=== PATIENT | male | born 1940 | race Caucasian/White ===

== ENCOUNTER 2018-06-20 10:53 | Day surgery (SDC) | payer OTHER ==
[2018-06-18 15:24] LABS: Absolute Lymphocytes (CBC) 1.8 K/uL (0.7-4.9); Absolute Monocytes 0.6 K/uL (0.1-1.3); Absolute Neutrophil 4.7 K/uL (1.8-8.0); Basophils % 0.6 % (0-1.3); Eosinophils % 5.1 % (0-4.4); Hematocrit 49.8 % (39.6-49.0); Lymphocytes % 23.9 % (15.3-44.8); MPV 8.9 fL (7.6-11.3); RBC Red Blood Cell Count 5.51 M/uL (4.33-5.43)
[2018-06-18 15:26] LABS: Protime INR 1.08
[2018-06-18 15:52] LABS: Urine Appearance CLOUDY; Urine Bilirubin NEGATIVE (NEG); Urine Blood 3+ (NEG); Urine Color RED; Urine Glucose NEGATIVE (NEG); Urine Protein 2+ (NEG); Urine pH 6.5 (5.0-7.0)
[2018-06-18 16:40] LABS: Urine Microscopic Reflex ORDER UMIC
[2018-06-18 17:20] LABS: Urine Bacteria <20 /HPF (NONE SEEN); Urine Culture Reflex Order REFLEXED; Urine Mucus 2+ /HPF (NONE SEEN); Urine RBC TNTC /HPF (NONE SEEN)
[2018-06-20] MEDS ORDERED: Ringers Lactate 1,000 ML IV ONE ×2 (11:14→16:23)
[2018-06-20] MEDS ORDERED: GENTAMICIN 80 MG/100 ML BAG 80 MG/100 ML BAG IV ONE (11:14)
--- NOTE | 2018-06-20 11:33 | RAD REPORT ---
EXAM DESCRIPTION: RAD - Abdomen 1 View ([facility]) - 06/20/2018 11:28 am CLINICAL HISTORY: Abdomen pain. FINDINGS: The bowel gas pattern is unremarkable. A left ureteral stent has been placed. Large left ureteral calculi persists within the proximal left ureter
[2018-06-20] MEDS ORDERED: EPHEDRINE SULF 50 MG/ML VIAL ONE (14:26)
--- NOTE | 2018-06-20 16:55 | RAD REPORT ---
EXAM DESCRIPTION: RAD - Urethrocystogrphy Retrograde - 06/20/2018 4:26 pm CLINICAL HISTORY: ICD N 20.0 FINDINGS: Nineteen fluoroscopic spot images obtained. Fluoroscopy time 2.1 minute Left ureter was cannulated and contrast administered. Subsequently a left ureteral stent was placed. Examination was performed by
== END 2018-06-20 17:42 | disposition home or self-care (01) ==
LOC: OR 10:53
PROVIDERS: ATTEND Urology
PROC: 0T778DZ Dilation of Left Ureter with Intraluminal Device, Via Natural or Artificial Opening Endoscopic (ICD-10-PCS; 2018-06-20)
PROC: 0TF78ZZ Fragmentation in Left Ureter, Via Natural or Artificial Opening Endoscopic (ICD-10-PCS; principal; 2018-06-20 13:00)
DX: N20.2 Calculus of kidney with calculus of ureter (principal); Q62.39 Other obstructive defects of renal pelvis and ureter; R31.0 Gross hematuria; I10 Essential (primary) hypertension; Z79.82 Long term (current) use of aspirin; Z79.899 Other long term (current) drug therapy
CPT/HCPCS: 52356; 87088; 85025; 87086; 80048; 36415; 85610; 85730; 74018; 74450; 51610; J1580; Q9967; 81003; 81015

== ENCOUNTER 2018-06-27 10:27 | Day surgery (SDC) | payer OTHER ==
[2018-06-27] MEDS ORDERED: Ringers Lactate 1,000 ML IV ONE ×2 (10:45→14:09)
[2018-06-27] MEDS ORDERED: GENTAMICIN 80 MG/100 ML BAG 80 MG/100 ML BAG IV ONE (10:45)
--- NOTE | 2018-06-27 11:23 | RAD REPORT ---
EXAM DESCRIPTION: RAD - Abdomen 1 View ([facility]) - 06/27/2018 11:12 am CLINICAL HISTORY: PRE SURGERY Pain COMPARISON: Abdomen 1 View (KUB) dated 06/20/2018; Abdomen 1 View ([facility]) dated 05/16/2018; Urethrocysto grphy Retrograde dated 06/20/2018 FINDINGS: The bowel gas pattern is non-obstructive. No evidence of free air or pneumatosis. Again no guy is a left double-J stent in place with multiple stones along the proximal aspect of the stent. No right-sided calculus identified with certainty.
[2018-06-27] MEDS ORDERED: PROPOFOL 200 MG/20 ML VIAL IV ONE (12:12)
[2018-06-27] MEDS ORDERED: MIDAZOLAM HCL 2 MG/2 ML INJ ONE (12:12)
[2018-06-27] MEDS ORDERED: FENTANYL CITR 250 MCG/5 ML ONE (12:12)
[2018-06-27] MEDS ORDERED: LIDOCAINE 2% MPF 5 ML VIAL ONE (12:12)
[2018-06-27] MEDS ORDERED: GLYCOPYRROLATE 0.2 MG/ML SYR ONE ×2 (12:34→12:35)
[2018-06-27] MEDS ORDERED: ROCURONIUM 50 MG/5 ML VIAL IV ONE (12:38)
[2018-06-27] MEDS ORDERED: KETOROLAC 30 MG/ML INJ ONE (14:27)
--- NOTE | 2018-06-27 14:51 | RAD REPORT ---
EXAM DESCRIPTION: RAD - Urethrocystogrphy Retrograde - 06/27/2018 2:43 pm CLINICAL HISTORY: LEFT URETHRAL STONE COMPARISON: Urethrocystogrphy Retrograde dated 06/20/2018 FINDINGS: Fluoroscopic imaging is submitted from left ureteral stent placement. Total fluoro time: 0.2 minutes
== END 2018-06-27 16:25 | disposition home or self-care (01) ==
LOC: OR 10:27
PROVIDERS: ATTEND Urology
PROC: 0T768DZ Dilation of Right Ureter with Intraluminal Device, Via Natural or Artificial Opening Endoscopic (ICD-10-PCS; 2018-06-27)
PROC: 0TF68ZZ Fragmentation in Right Ureter, Via Natural or Artificial Opening Endoscopic (ICD-10-PCS; principal; 2018-06-27 12:00)
DX: N20.1 Calculus of ureter (principal); Q62.39 Other obstructive defects of renal pelvis and ureter; I10 Essential (primary) hypertension; Z79.899 Other long term (current) drug therapy; Z85.038 Personal history of other malignant neoplasm of large intestine
CPT/HCPCS: 52356; 88300; 82360; 74018; 74450; 51610; J2704; J2250; J3010; J1580; Q9967

== ENCOUNTER 2022-12-21 06:55 | Day surgery (SDC) | payer OTHER ==
[2022-12-21] MEDS ORDERED: SIMETHICONE 40 MG/ 0.6 ML ONE (07:22)
[2022-12-21] MEDS ORDERED: Ringers Lactate 1,000 ML IV ONE (07:24)
[2022-12-21] MEDS ORDERED: LIDOCAINE 1% MPF 5 ML VIAL ONE (07:46)
[2022-12-21] MEDS ORDERED: propofoL 200 MG/20 ML VIAL IV ONE (07:46)
[2022-12-21 09:19] VITALS: BP 122/62; TEMP 97.6; O2SAT 97
== END 2022-12-21 09:11 | disposition home or self-care (01) ==
LOC: OR 06:55
PROVIDERS: ATTEND Internal Medicine Gastroenterology
PROC: 0DBP8ZX Excision of Rectum, Via Natural or Artificial Opening Endoscopic, Diagnostic (ICD-10-PCS; 2022-12-21)
PROC: 0DBK8ZX Excision of Ascending Colon, Via Natural or Artificial Opening Endoscopic, Diagnostic (ICD-10-PCS; principal; 2022-12-21 07:30)
DX: Z85.038 Personal history of other malignant neoplasm of large intestine (principal); Z86.010 Personal history of colon polyps; K64.8 Other hemorrhoids; D12.2 Benign neoplasm of ascending colon
CPT/HCPCS: 88305; 45380; J2704; J2001; J7120